=== PATIENT | female | born 1975 | race Caucasian/White ===

== ENCOUNTER 2017-10-21 16:53 | Emergency (ER) | payer BC | END 2017-10-21 17:10 | disposition left against medical advice (07) | LOC: DL.ED 16:53 | DX: Z53.21 Procedure and treatment not carried out due to patient leaving prior to being seen by health care provider (principal) ==

== ENCOUNTER 2025-08-18 10:29 | Emergency (ER) | payer BC, OTHER ==
[2025-08-18 11:25] LABS: BASOPHILS PERCENT AUTO 0.1 % (0.0-1.0); EOSINOPHILS PERCENT AUTO 0.9 % (1.0-3.0); LYMPHOCYTES PERCENT AUTO 17.1 % (20.5-50.1); MONOCYTES PERCENT AUTO 8.7 % (2-8); NEUTROPHILS PERCENT AUTO 73.2 % (42.2-75.2); PLATELET COUNT,PLT 201 10^3/uL (150-450); RED BLOOD CELL COUNT 4.64 10^6/uL (4.2-5.4); WHITE BLOOD CELL COUNT,WBC 7.4 10^3/uL (5.0-10.0)
[2025-08-18 11:48] LABS: A/G RATIO 1.0; ALANINE AMINOTRANSFERASE,ALT 27.0 U/L (14-59); ASPARTATE AMNIOTRANSFERASE,AST 17.0 U/L (15-37); BILIRUBIN TOTAL 0.7 mg/dL (0.2-1.0); BLOOD UREA NITROGEN,BUN 9.0 mg/dL (7-18); CARBON DIOXIDE,CO2 30.0 mmol/L (21-32); CHLORIDE,CL 105.0 mmol/L (98-107); CREATININE 0.65 mg/dL (0.55-1.02); EST CRCL DRUG DOSING (CG) 111.82 mL/min; GLUCOSE RANDOM 91.0 mg/dL (70-99); POTASSIUM,K 3.9 mmol/L (3.5-5.1); PROTEIN TOTAL,TP 7.7 g/dL (6.4-8.2); SODIUM,NA 141.0 mmol/L (136-145)
[2025-08-18 11:50] LABS: ESTIMATED GFR 109.0 mL/min (>=60)
== END 2025-08-18 13:35 | disposition home or self-care (01) ==
LOC: DL.ED 10:29
DX: J06.9 Acute upper respiratory infection, unspecified (principal); R51.9 Headache, unspecified; R03.0 Elevated blood-pressure reading, without diagnosis of hypertension; Z91.013 Allergy to seafood
CPT/HCPCS: 36415; 70450; 80053; 83735; 84484; 85025; 87428-QW; 93005; 93010; 99284; J1642